=== PATIENT | female | born 1960 | race Caucasian/White ===

== ENCOUNTER → 2024-08-01 | Outpatient (CLI) | payer OTHER, SELFPAY ==
[2024-08-01 15:39] LABS: Absolute Neutrophil Count 3.4 X10^3/uL (2.0-7.7); Basophil# 0.03 X10^3/uL; Basophil% 0.6 % (0-1); Eosinophil# 0.06 X10^3/uL; Eosinophils% 1.3 % (0-5); Hematocrit 40.4 % (37-47); Hemoglobin 13.5 g/dL (12.0-15.0); Lymphocyte % 20.8 % (19-41); Mean Corp Hgb Conc 33.4 g/dL (32-36); Mean Corpuscular Hgb 31.7 pg (27.0-32.0); Mean Corpuscular Volume 94.8 fL (81-99); Monocyte# 0.34 X10^3/uL; Monocyte% 7.1 % (0-10); NRBC Flagged by Analyzer 0 % (0-5); Neutrophil # 3.36 X10^3/uL (2.7-7.7); Platelet Count 239 K/mm3 (150-450); RBC Distribution Width CV 12.4 % (11.6-14.6); RBC Distribution Width SD 42.9 fl (35.1-43.9); Red Blood Count 4.26 M/mm3 (4.2-5.4); White Blood Count 4.8 K/mm3 (4.4-11.0)
[2024-08-01 16:38] LABS: ALB/GLOB Ratio 1.9 RATIO (0.9-2.4); AST(SGOT) 13 U/L (<=31); Alanine Aminotransfer ALT/SGPT 14 U/L (<=34); Albumin, Serum 4.3 g/dL (3.4-4.8); Alkaline Phosphatase 101 U/L (35-104); Anion Gap 10 (5-15); BUN 16 mg/dL (4-19); BUN/Creat Ratio 17.9 RATIO (10-20); Calcium,Total 9.5 mg/dL (7.6-11.0); Carbon Dioxide 27.7 mmol/L (21.0-32.0); Chloride 105 mmol/L (98-108); Creatinine, Serum 0.91 mg/dL (0.70-1.20); EST Glomerular Filtration Rate 71 (>60); Globulin 2.2 g/dL (2.2-4.2); Glucose 86 mg/dL (70-99); Iron 78 ug/dL (50-170); Potassium 4.3 mmol/L (3.3-5.1); Protein, Total 6.5 g/dL (5.9-8.4); Sodium Level 142 mmol/L (133-145); Total Bilirubin 0.28 mg/dL (0.00-1.30)
[2024-08-01 16:40] LABS: Estradiol < 5.0 pg/mL; Ferritin 74 ng/mL (22-378); Vitamin B12 512 pg/mL (180-914); Vitamin D,25 Hydroxy 42.7 ng/mL (30-100)
[2024-08-01 17:11] LABS: FOLATES,SERUM (FOLIC ACID) 6.88 ng/mL (4.60-34.80)
[2024-08-03 08:08] LABS: PROGESTERONE 0.1 ng/mL (.)
== END | disposition home or self-care (01) ==
LOC: LABSPEC 14:47
PROVIDERS: Referring Provider Nurse Practitioner Family; Visit Provider Nurse Practitioner Family
DX: R50.9 Fever, unspecified (principal); R53.82 Chronic fatigue, unspecified; R61 Generalized hyperhidrosis; H93.19 Tinnitus, unspecified ear; R00.2 Palpitations; I10 Essential (primary) hypertension; R19.7 Diarrhea, unspecified; K21.9 Gastro-esophageal reflux disease without esophagitis; R07.89 Other chest pain; J31.2 Chronic pharyngitis; R30.0 Dysuria; R35.1 Nocturia; G89.29 Other chronic pain; R41.89 Other symptoms and signs involving cognitive functions and awareness; R45.4 Irritability and anger; R51.9 Headache, unspecified
CPT/HCPCS: 80053; 82306; 82607; 82627; 82670; 82728; 82746; 83540; 84144; 84402; 84403; 85025; 82626